=== PATIENT | female | born 1965 | race Caucasian/White ===

== ENCOUNTER 2020-09-15 22:00 | Emergency (ER) | payer OTHER ==
[2020-09-15 22:10] VITALS: BP 134/89; PULSE 76; TEMP 97.9; BMI 27.8
[2020-09-15] MEDS ORDERED: ACYCLOVIR 400 MG TABLET PO ONE (22:33)
[2020-09-15] MEDS ORDERED: ACYCLOVIR 400 MG TABLET ONE (22:40)
== END 2020-09-15 22:56 | disposition home or self-care (01) ==
LOC: FER 22:00
DX: B02.9 Zoster without complications (principal)
CPT/HCPCS: 99283-25